=== PATIENT | female | born 1960 | race African-American/Black ===

== ENCOUNTER 2020-06-29 11:24 | Day surgery (SDC) | payer MEDICARE, OTHER, SELFPAY ==
--- NOTE | 2020-06-27 14:49 | PCM.HP.BLA ---
History and Physical Date of Admission: 06/29/20 The patient has been seen previously for a positive ifobt. I saw her 07/17/17. We discussed colonoscopy, but she failed to set up the procedure, due to transportation issues and later requested that our office stop calling in regards to scheduling the colonoscopy. The patient denies a family history of colon cancer. ? Component Latest Ref Rng & Units 05/22/2020 Occult Blood, Stool Negative Positive (A) ? Component Latest Ref Rng & Units 05/21/2020 WBC 3.70 - 11.00 k/uL 7.37 RBC 3.90 - 5.20 m/uL 4.66 Hemoglobin 11.5 - 15.5 g/dL 14.5 Hematocrit 36.0 - 46.0 % 44.7 MCV 80.0 - 100.0 fL 95.9 MCH 26.0 - 34.0 pG 31.1 MCHC 30.5 - 36.0 g/dL 32.4 RDW-CV 11.5 - 15.0 % 11.9 Platelet Count 150 - 400 k/uL 304 MPV 9.0 - 12.7 fL 11.7 Absolute nRBC <0.01 k/uL <0.01 Iron 41 - 186 ug/dL 87 TIBC 232 - 386 ug/dL 306 Transferrin Saturation 15 - 57 % 28 Ferritin 14.7 - 205.1 ng/mL 250.0 (H) ? Component Latest Ref Rng & Units 05/21/2020 Protein, Total 6.3 - 8.0 g/dL 7.0 Albumin 3.9 - 4.9 g/dL 4.4 Calcium 8.5 - 10.2 mg/dL 9.6 Bilirubin, Total 0.2 - 1.3 mg/dL 0.4 Alkaline Phosphatase 34 - 123 U/L 116 AST 13 - 35 U/L 33 Glucose 74 - 99 mg/dL 91 BUN 7 - 21 mg/dL 13 Creatinine 0.58 - 0.96 mg/dL 0.87 Sodium 136 - 144 mmol/L 142 Potassium 3.7 - 5.1 mmol/L 3.8 Chloride 97 - 105 mmol/L 104 CO2 22 - 30 mmol/L 24 Anion Gap 9 - 18 mmol/L 14 ALT 7 - 38 U/L 30 eGFR- ? >60 eGFR-All Other Races . >60 ? The patient has a history of stroke (06/2010) on clopidogrel, HTN and HLD, arthritis, asthma, type 2 diabetes with neuropathy. ? Presenting complaint: The patient denies change in bowel habits, rectal bleeding or abdominal pain. Having a bowel movement at least daily. The metformin makes it loose - she takes it with breakfast. ? Denies any upper GI complaints unless I drink or eat citrus. ? PAST MEDICAL HISTORY ? Arthritis ? ? Asthma ? ? DM (diabetes mellitus) (HCC) ? ? Hyperlipidemia ? ? Hypertension ? ? Neuropathy ? ? Stroke (HCC) 2009 ? PAST SURGICAL HISTORY ? DELIVERY ONLY ? ? ? LITHOTRIPSY / 1 SIDE Right ? ? PAST SURGICAL HISTORY OF ? ? ? tubal ligation. Tubal and salpingectomy, ovaries intact ? SALPINGECTOMY Bilateral ? ? age 22 ? FAMILY HISTORY ? Heart Mother ? ? Heart Father ? ? quadruple bypass ? Hypertension Sister ? ? Asthma Sister ? ? Heart Brother ? ? Asthma Sister ? ? other (partial hysterectomy) Sister ? ? other (mental issues) Son ? ?? CURRENT MEDICATIONS ? buPROPion XL (WELLBUTRIN XL) 150 mg 24 hr tablet Take 1 tablet by mouth once daily. 15 tablet 0 ? metFORMIN ER (GLUCOPHAGE XR) 500 mg 24 hr tablet Take 2 tablets by mouth daily with breakfast. 180 tablet 3 ? gabapentin (NEURONTIN) 300 mg capsule TAKE 1 CAPSULE BY MOUTH THREE TIMES DAILY FOR 90 DAYS. 270 capsule 1 ? Blood Pressure Test Kit-Large (QUICK RESPONSE BP MONITOR) 1 Each once daily. 1 Each 0 ? albuterol (PROVENTIL) 2.5 mg /3 mL (0.083 %) nebulizer solution Use 3 mL via nebulizer every 4 hours as needed for Wheezing/Shortness of Breath. Use over 5-15minutes. 30 Vial 1 ? atenolol (TENORMIN) 100 mg tablet Take 1 tablet by mouth once daily. 90 tablet 2 ? clopidogrel (PLAVIX) 75 mg tablet Take 1 tablet by mouth once daily. 90 tablet 3 ? lisinopril (ZESTRIL, PRINIVIL) 40 mg tablet Take 1 tablet by mouth once daily. 90 tablet 3 ? atorvastatin (LIPITOR) 20 mg tablet Take 1 tablet by mouth daily at bedtime. For cholesterol. 90 tablet 3 ? amLODIPine (NORVASC) 5 mg tablet Take 1 tablet by mouth once daily. 90 tablet 1 ? montelukast (SINGULAIR) 10 mg tablet Take 1 tablet by mouth daily at bedtime. 30 tablet 5 ? budesonide-formoterol (SYMBICORT) 160-4.5 mcg/actuation inhaler Inhale 2 Puffs as instructed twice daily. 1 Inhaler 3 ? albuterol HFA (PROVENTIL HFA) 90 mcg/actuation inhaler Inhale 2 Puffs as instructed every 4 hours as needed. 1 Inhaler 11 ? COMPOUNDED PRESCRIPTION Medline, heavy duty, extra wide rollater walker 1 Each 0 ? blood sugar diagnostic (BLOOD GLUCOSE TEST) test strip Test blood sugar(s) 1 times daily. Dx: Type 2 DM - Controlled E11.9 Insulin: Yes 50 Strip 11 ? SOCIAL HISTORY: Patient is . She quit smoking nearly 30 years ago. Elayne reports her alcohol use as never. ? ? REVIEW OF SYSTEMS: GENERAL: No weight loss, malaise or fevers RESPIRATORY: History of asthma. No current of cough or wheezing CARDIOVASCULAR: Hypertension and HLD. HX of stroke in 2009. No chest pain or ZAMAN. GI: The patient states that her appetite has been good. She does get hungry. There has been no nausea, no vomiting. She denies dysphagia and denies odynophagia. There has rarely been indigestion with heartburn. There has not been regurgitation. Bowel habits have been regular. There has partially been diarrhea. There has not been constipation. The patient denies rectal bleeding. There has not been melena. No abdominal pain. 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 LMP: BTL. MUSCULOSKELETAL: Arthritis. No new or worsening joint pain or swelling, back pain or muscle pain PSYCH: Negative for sleep disturbance, mood disorder and recent psychosocial stressors. HEMATOLOGY/LYMPHOLOGY: Clopidogrel ENDOCRINE: Positive for diabetes mellitus on oral agent NEURO: Numbness hands and feet. History of migraines . All other reviewed and negative other than HPI. ? PHYSICAL EXAMINATION: Blood pressure 135/80, pulse 94, height 157.5 cm (5' 2), weight (!) 145 kg (319 lb 9.6 oz), SpO2 98 %. General Appearance: Well appearing, alert, in no acute distress, well-hydrated, well nourished. Skin: Skin color, texture, turgor normal, no suspicious rashes or lesions. Head: Normocephalic, no abnormalities. Eyes: Anicteric sclera. Neck: Supple, no adenopathy; thyroid symmetric, normal size, no bruits. Lungs: Lungs clear to auscultation. No wheezing, rhonchi, rales. Heart: RRR without murmur. Abdomen: Abdomen soft, non-tender. Bowel sounds normal. No masses, organomegaly. Extremities: No deformities, edema, skin discoloration, clubbing or cyanosis. Peripheral Pulses: Normal. Neurologic: Gait normal. Sensation grossly intact. ? Impression: positive ifobt with normal CBC ? Plan: This patient will be scheduled for a colonoscopy with MAC (requesting [facility] due to tranportation). She will be using Miralax/Dulcolax as the prep. The preparation, as well as the procedure, has been explained in detail. The risks, benefits, anticipated outcomes and possible complications, including failure to complete the endoscopy and perforation, were mentioned. ?I explained the procedure in understandable terms and the patient was given printed material concerning the planned procedure. The patient had the opportunity to ask questions concerning the planned procedure. The patient freely consents to the planned procedure. ? The patient was offered a surgery/procedure. The provider and patient have discussed in detail the risk of exposure to and/or potential harm posed by the COVID-19 virus with having a surgery/procedure at this time versus the risk of delaying the surgery/procedure. It is not possible to know either the risk of delaying the surgery or procedure or chance of getting an infection with perfect accuracy, but a joint decision was made between the patient and the provider to proceed at this time with the scheduled surgery/procedure. ? The patient is asked to call with any questions for concerns, or should there be any change in health status between now and the scheduled procedure. ? ? Vandana Stephenson RN OFFICE SWEEPER.[employer]K WHIPPER
--- NOTE | 2020-06-29 | COLBX_PTH ---
PATIENT: CRISTÓBAL HAMILTON LOC: EN U#:[id number] AGE/SX: 59/F ROOM: RE06/29/[address]: Dr. Nenita Cohen MD : 1960 BED: DIS: 06/29/2020 SPEC #: [id number] RECD: 06/29/20 15:03 STATUS: MIL GEOVANNY #: [id number] DANA: 06/29/20 00:[address]: Nenita Cohen DEPT: SURGICAL PATHOLOGY RECD BY: Miguel Minaya ENTERED: 06/30/20 08:47 SP TYPE: COLON BX OTHR DR: DARREL Soto Tissues: A - Cecum, NOS B - Sigmoid colon biopsy Procedures: Surgery Specimen Level IV HEADER OPERATION: Colonoscopy (MAC) PRE-OP DIAGNOSIS: Positive fecal occult blood TISSUE SUBMITTED: A - Cecum polyps (2), B - Sigmoid polyp MICROSCOPIC DIAGNOSIS A. Cecum polyps, biopsy: Fragments of tubular adenoma. B. Sigmoid polyp, polypectomy: Tubulovillous adenoma. ARGELIA:mark 07/01/20 MICROSCOPIC DESCRIPTION Slides are reviewed. GROSS DESCRIPTION A - Received in fixative is one container labeled with the patient's name and designated cecum polyp. The specimen consists of multiple irregular fragments of arredondo-pink soft tissue that in aggregate measure 2 x 1 x 0.3 cm. The specimen is totally submitted in one cassette. B - Received in fixative is one container labeled with the patient's name and designated sigmoid polyp. The specimen consists of a pedunculated arredondo-pink polyp. The polyp measures 1.5 x 1 x 1 cm and pedicle measures 0.8 cm in length and 0.5 cm in diameter. The base of the polyp is inked black. The specimen is serially sectioned and submitted entirely in two cassettes. / ARGELIA:mark 06/30/20 TC:1 CPT: 59122 x2
[2020-06-29 11:54] VITALS: BP 129/67; PULSE 77; RESP 16; TEMP 36.9; O2SAT 95; BMI 57.2
[2020-06-29] MEDS: Lactated Ringers 1,000 ML 75 ML IV (12:04)
[2020-06-29 13:15] LABS: Bedside Glucose 127 mg/dL (70-110)
--- NOTE | 2020-06-29 13:22 | OP.COLON_ITS ---
Patient Name: Elayne Fuentes Procedure Date: 06/29/2020 12:28 PM Date of : 1960 Age: 59 Procedure: Colonoscopy Indications: Heme positive stool Providers: Nenita Cohen MD Referring MD: Nenita Cohen MD Medicines: See the Anesthesia note for documentation of the administered medications Patient Profile: Refer to note in patient chart for documentation of history and physical. Last Colonoscopy: none. The patient's first colonoscopy is today. Complications: No immediate complications. Procedure: Pre-Anesthesia Assessment: - see anesthesia note After I obtained informed consent, the scope was passed under direct vision. Throughout the procedure, the patient's blood pressure, pulse, and oxygen saturations were monitored continuously. The colonoscope was introduced through the anus and advanced to the cecum, identified by the appendiceal orifice, ileocecal valve and palpation. The colonoscopy was performed without difficulty. The patient tolerated the procedure well. The quality of the bowel preparation was adequate. Scope In: 12:39:39 PM Scope Withdrawal Time 0 hours 28 minutes 32 seconds Scope Out: 1:17:32 PM Total Procedure Duration Time 0 hours 37 minutes 53 seconds Findings: The perianal and digital rectal examinations were normal. A 15 to 20 mm polyp was found in the sigmoid colon. The polyp was pedunculated. The polyp was removed with a hot snare. Resection and retrieval were complete. Verification of patient identification for the specimen was done by the nurse. Estimated blood loss: none. Two semi-pedunculated polyps were found in the cecum. The polyps were 5 to 15 mm in size. These polyps were removed with a hot snare. Resection and retrieval were complete. Verification of patient identification for the specimen was done by the nurse. Estimated blood loss was minimal. Non-bleeding internal hemorrhoids were found. Impression: - One 15 to 20 mm polyp in the sigmoid colon, removed with a hot snare. Resected and retrieved. - Two 5 to 15 mm polyps in the cecum, removed with a hot snare. Resected and retrieved. - Non-bleeding internal hemorrhoids. Recommendation: - Repeat colonoscopy date to be determined after pending pathology results are reviewed for surveillance based on pathology results. - Return to primary care physician PRN. - Follow up with Vandana Stephenson NP, in 1-2 weeks to discuss results, can be by [facility] - Continue present medications. Procedure Code(s): --- Professional --- 55311, Colonoscopy, flexible; with removal of tumor(s), polyp(s), or other lesion(s) by snare technique Diagnosis Code(s): --- Professional --- D12.5, Benign neoplasm of sigmoid colon D12.0, Benign neoplasm of cecum K64.8, Other hemorrhoids R19.5, Other fecal abnormalities CPT copyright 2017 [employer]. All rights reserved. The codes documented in this report are preliminary and upon bricklayer's assistant review may be revised to meet current compliance requirements. MD Nenita Bourgeois MD 06/29/2020 1:22:18 PM This report has been signed electronically. Number of Addenda: 0 Note Initiated On: 06/29/2020 12:28 PM
[2020-06-29 13:23] VITALS: BP 109/58; BP 129/67; PULSE 83; RESP 16; TEMP 36.3; O2SAT 97
--- NOTE | 2020-06-29 13:23 | OP.CCLET_ITS ---
06/29/2020 Jaclyn Brown Re : Colonoscopy procedure for Elayne Fuentes Dear Kevin This procedure was performed on Monday, June 29, 2020. My impressions and recommendations are as follows: Impressions : - One 15 to 20 mm polyp in the sigmoid colon, removed with a hot snare. Resected and retrieved. - Two 5 to 15 mm polyps in the cecum, removed with a hot snare. Resected and retrieved. - Non-bleeding internal hemorrhoids. Recommendations : - Repeat colonoscopy date to be determined after pending pathology results are reviewed for surveillance based on pathology results. - Return to primary care physician PRN. - Follow up with Vandana Stephenson NP, in 1-2 weeks to discuss results, can be by [facility] - Continue present medications. My findings are described in the full procedure note, which is enclosed. If I can be of further assistance, please feel free to contact me at Doctor phone number(s): , Work: . Sincerely, MD Nenita Bourgeois MD 06/29/2020 1:22:18 PM This report has been signed electronically.
[2020-06-29 13:28] VITALS: BP 113/66; BP 129/67; PULSE 83; RESP 16; O2SAT 100
[2020-06-29 13:33] VITALS: BP 129/67; BP 131/74; PULSE 82; RESP 16; O2SAT 99
[2020-06-29 13:38] VITALS: BP 129/67; BP 136/68; PULSE 79; RESP 16; TEMP 36.8; O2SAT 99
[2020-06-29 14:15] VITALS: BP 129/67
== END 2020-06-29 14:22 | disposition home or self-care (01) ==
LOC: EN 11:24 → AC 11:24
PROVIDERS: Anesthesiology; PCP Physician Assistant; Referring Provider Physician Assistant; Visit Provider Surgery
PROC: 0DJD8ZZ Inspection of Lower Intestinal Tract, Via Natural or Artificial Opening Endoscopic (ICD-10-PCS; CPT 45378; principal; 2020-06-29 12:25)
DX: D12.0 Benign neoplasm of cecum (principal); D12.5 Benign neoplasm of sigmoid colon; K64.8 Other hemorrhoids; K92.1 Melena; J45.909 Unspecified asthma, uncomplicated; E78.5 Hyperlipidemia, unspecified; I10 Essential (primary) hypertension; M19.90 Unspecified osteoarthritis, unspecified site; E11.40 Type 2 diabetes mellitus with diabetic neuropathy, unspecified; F32.9 Major depressive disorder, single episode, unspecified; Z86.73 Personal history of transient ischemic attack (TIA), and cerebral infarction without residual deficits; Z79.02 Long term (current) use of antithrombotics/antiplatelets; Z79.84 Long term (current) use of oral hypoglycemic drugs; Z79.51 Long term (current) use of inhaled steroids; Z79.899 Other long term (current) drug therapy; Z87.891 Personal history of nicotine dependence
CPT/HCPCS: 45380; 82962; 87635; 88305; C9803; J7120; A4648; J2405; U0003